=== PATIENT | male | born 1965 | race Caucasian/White ===

== ENCOUNTER 2018-03-22 03:49 | Emergency (ER) | payer MEDICAID ==
[2018-03-22] MEDS ORDERED: Sodium Chloride 0.9% 10 ML Syringe FLUSH PRN (03:55)
[2018-03-22] MEDS ORDERED: LORazepam 2 MG/ML SDV IVPUSH ONE (03:55)
[2018-03-22] MEDS ORDERED: Ondansetron 4 MG/2 ML SDV IVPUSH ONE (03:55)
[2018-03-22] MEDS ORDERED: Sodium Chloride 0.9% 2.5 ML Syringe FLUSH PRN (03:55)
[2018-03-22] MEDS ORDERED: Sodium Chloride 0.9% 1,000 ML IV ONE (03:55)
[2018-03-22] MEDS ORDERED: Pantoprazole 40 MG Vial IVPUSH ONE (03:55)
--- NOTE | 2018-03-22 03:58 | EDM.PDOC ---
ED HPI GENERAL MEDICAL PROBLEM - General Chief Complaint: General Stated Complaint: PANIC ATTACK Time Seen by Provider: 03/22/18 03:54 - History of Present Illness INITIAL COMMENTS - FREE TEXT/NARRATIVE: HISTORY AND PHYSICAL: History of present illness: The patient is a 52-year-old male with a history of diabetes for which she takes both insulin and pills and also has a history of panic attacks and alcoholism and presents via EMS for stating that he feels like he is dehydrated and he feels like he's having a panic attack. According to the patient he has not had his insulin for 2-3 weeks as his insurance will not cover it here and his daughter has to bring it from [place] and with his metformin he is supposed to be taking it twice a day and he only takes it once a day because he does not want to take the second dose in the evening because that is when he drinks his alcohol. He says he has been a chronic alcoholic ever since he was young and did complete a treatment program recently and was clean and sober for 18 months but relapsed about 6 months ago. He drinks on a daily basis and his last alcohol consumption was at 12 noon yesterday. He says he drinks a lot of water but he still feels very dehydrated and his tongue and throat feel very dry. He says he is making normal urine and he has not had any vomiting but has had some dry heaves. He has no abdominal pain that is new or different and no black or bloody stool. He says he has had padded tests in the past and this is similar but with the dehydration he wanted to be evaluated. The patient also has a history of intestinal surgery when he was a child with a midline lower abdominal scar that subsequently developed a ventral wall hernia which was repaired but never completely healed. He says he always has issues with the recurrence of the hernia as well as drainage from the old wound site but he has not seen anyone for this evaluation. Patient also has a history of a pacemaker and he is not really sure why he had the place. He has no cardiac disease and currently has no chest pain or shortness of breath. In the ED the patient mostly complains that his mouth and throat are very dry and is difficult for him to speak and swallow because it is so dry. He keeps asking for water or ice chips. He also says that he is anxious. Review of systems: As per history of present illness and below otherwise all systems reviewed and negative. Past medical history: As per history of present illness and as reviewed below otherwise noncontributory. Surgical history: As per history of present illness and as reviewed below otherwise noncontributory. Social history: No reported history of drug or alcohol abuse. Family history: As per history of present illness and as reviewed below otherwise noncontributory. Physical exam: General: Well-developed well-nourished overweight man who is nontoxic and able to speak clearly without breathlessness or slurring despite the very dry mucous membranes. Vital signs were noted by me HEENT: Atraumatic, normocephalic, pupils reactive, negative for conjunctival pallor or scleral icterus, mucous membranes very dry, throat clear, neck supple , nontender, trachea midline. The patient has facial flushing and telangiectasias of the cheeks consistent with his history of alcoholism. Lungs: Clear to auscultation, breath sounds equal bilaterally, chest nontender. No wheezing stridor or work of breathing Heart: S1S2, regular rate and rhythm no overt murmurs Abdomen: Soft, nondistended, nontender. Negative for masses or hepatosplenomegaly. Bowel sounds are slightly hypoactive. There is a well- healed infraumbilical midline scar and this is scar exhibits thickened scar tissue but no evidence of any hernial defects. In the supraumbilical area there is a chronic appearing scabby-like wound area that has no erythema or tenderness and there is a ventral wall hernia in this region which is soft and reducible. Overall the patient has no tenderness rebound or guarding with palpation of the abdomen as a whole. Pelvis: Stable nontender. Genitourinary: Deferred. Rectal: Deferred. Extremities: Atraumatic, negative for cords or calf pain. Neurovascular unremarkable. Full range of motion without defects or deficits Neuro: Awake, alert, oriented. Cranial nerves II through XII unremarkable. Cerebellum unremarkable. Motor and sensory unremarkable throughout. Exam nonfocal. The patient does exhibit slight tremulousness on my examination. Diagnostics: EKG CBC CMP amylase lipase alcohol level ammonia magnesium UA UDS ketones Therapeutics: IV O2 monitor IV fluids Protonix Ativan magnesium oxide Patient says he feels improved and does not feel anxious anymore. He is drinking water and taking ice chips without difficulty and he is not tremulous or tachycardic. He is telling me that his daughter has obtained his insulin and has placed the mail and he is due to receive it tomorrow Monday. I've offered him a prescription for him for his insulin and he says because of the cost he will not be able to afford it without his insurance and his insurance will not work here in [place]. He declines those prescriptions. I will give him local resources and have informed him of our closest rehabilitation program in [place]. He says that at this point he doesn't think that he is ready nor able to give up alcohol. He also admits to me that he does drink his whiskey with Mountain Dew every evening which he knows is bad for his diabetes He is aware of my concerns. I will give him a clinic follow-up information as well. Impression: Anxiety episode, clinical dehydration and hyperglycemia with history of diabetes and noncompliance education care plan, chronic alcoholism and alcohol use Definitive disposition and diagnosis as appropriate pending reevaluation and review of above. - Related Data Allergies Allergy/AdvReac Type Severity Reaction Status Date / Time No Known Allergies Allergy Verified 03/22/18 03:51 Home Meds: Home Meds FLUoxetine [PROzac] 03/22/18 [History] Insulin Detemir [Levemir] 30 unit SQ BID 03/22/18 [History] Lisinopril [Prinivil] 03/22/18 [History] Omeprazole 03/22/18 [History] metFORMIN [Glucophage XR] 03/22/18 [History] ED ROS GENERAL - Review of Systems Review Of Systems: ROS reveals no pertinent complaints other than HPI. ED EXAM, GENERAL - Physical Exam Exam: See Below (See dictation) Course - Vital Signs Last Recorded V/S: Last Vital Signs Temp 36.2 C 03/22/18 03:52 Pulse 80 03/22/18 05:04 Resp 20 03/22/18 05:04 BP 145/108 H 03/22/18 05:04 Pulse Ox 96 03/22/18 05:04 - Orders/Labs/Meds Orders: Active Orders 24 hr Category Date Time Status Blood Glucose Check, Bedside [RC] ONETIME Care 03/22/18 03:54 Active Cardiac Monitoring [RC] . DIRECTED Care 03/22/18 03:54 Active EKG Documentation Completion [RC] STAT Care 03/22/18 03:54 Active Oxygen Therapy, ED [RC] ASDIRECTED Care 03/22/18 03:54 Active Pulse Oximetry [RC] ASDIRECTED Care 03/22/18 03:54 Active DRUG SCREEN, URINE [URCHEM] Stat Lab 03/22/18 03:55 Ordered UA W/EDUAR RFLX IF INDICATED [URIN] Stat Lab 03/22/18 03:55 Ordered Magnesium Oxide Med 03/22/18 05:13 Once 400 mg PO ONETIME ONE Sodium Chloride 0.9% [Saline Flush] Med 03/22/18 03:55 Active 10 ml FLUSH ASDIRECTED PRN Sodium Chloride 0.9% [Saline Flush] Med 03/22/18 03:55 Active 2.5 ml FLUSH ASDIRECTED PRN Saline Lock Insert [OM.PC] Stat Oth 03/22/18 03:54 Ordered Medication Orders Sodium Chloride (Saline Flush) 10 ml FLUSH ASDIRECTED PRN PRN Reason: Keep Vein Open Sodium Chloride (Saline Flush) 2.5 ml FLUSH ASDIRECTED PRN PRN Reason: Keep Vein Open Labs: Laboratory Tests 03/22/18 03/22/18 03/22/18 Range/Units 04:05 04:05 04:05 WBC 6.15 (4.0-11.0) K/uL RBC 4.77 (4.50-5.90) M/uL Hgb 15.2 (13.0-17.0) g/dL Hct 43.1 (38.0-50.0) % MCV 90.4 (80.0-98.0) fL MCH 31.9 (27.0-32.0) pg MCHC 35.3 (31.0-37.0) g/dL RDW Std Deviation 42.7 (28.0-62.0) fl RDW Coeff of [place] 13 (11.0-15.0) % Plt Count 144 L (150-400) K/uL MPV 9.40 (7.40-12.00) fL Neut % (Auto) 48.2 (48.0-80.0) % Lymph % (Auto) 43.7 H (16.0-40.0) % Ellis % (Auto) 6.5 (0.0-15.0) % Eos % (Auto) 1.1 (0.0-7.0) % Baso % (Auto) 0.5 (0.0-1.5) % Neut # (Auto) 3.0 (1.4-5.7) K/uL Lymph # (Auto) 2.7 H (0.6-2.4) K/uL Ellis # (Auto) 0.4 (0.0-0.8) K/uL Eos # (Auto) 0.1 (0.0-0.7) K/uL Baso # (Auto) 0.0 (0.0-0.1) K/uL Nucleated RBC % 0.0 /100WBC Nucleated RBCs # 0 K/uL Sodium 138 (136-148) mmol/L Potassium 4.3 (3.5-5.1) mmol/L Chloride 100 (98-107) mmol/L Carbon Dioxide 24.0 (21.0-32.0) mmol/L BUN 9 (7.0-18.0) mg/dL Creatinine 1.1 (0.8-1.3) mg/dL Est Cr Clr Drug Dosing 84.62 mL/min Estimated GFR (MDRD) > 60.0 ml/min Glucose 347 H (74-106) mg/dL Calcium 9.0 (8.5-10.1) mg/dL Magnesium 1.3 L (1.8-2.4) mg/dL Total Bilirubin 0.3 (0.2-1.0) mg/dL AST 45 H (15-37) IU/L ALT 46 (14-63) IU/L Alkaline Phosphatase 67 (46-116) U/L Ammonia 30 (19-54) ug/dL Total Protein 7.5 (6.4-8.2) g/dL Albumin 3.9 (3.4-5.0) g/dL Globulin 3.6 (2.6-4.0) g/dL Albumin/Globulin Ratio 1.1 (0.9-1.6) Amylase 37 (25-115) U/L Lipase 175 (73-393) U/L Ethyl Alcohol 28 mg/dL Ketones (NEG) 03/22/18 Range/Units 04:05 WBC (4.0-11.0) K/uL RBC (4.50-5.90) M/uL Hgb (13.0-17.0) g/dL Hct (38.0-50.0) % MCV (80.0-98.0) fL MCH (27.0-32.0) pg MCHC (31.0-37.0) g/dL RDW Std Deviation (28.0-62.0) fl RDW Coeff of [place] (11.0-15.0) % Plt Count (150-400) K/uL MPV (7.40-12.00) fL Neut % (Auto) (48.0-80.0) % Lymph % (Auto) (16.0-40.0) % Ellis % (Auto) (0.0-15.0) % Eos % (Auto) (0.0-7.0) % Baso % (Auto) (0.0-1.5) % Neut # (Auto) (1.4-5.7) K/uL Lymph # (Auto) (0.6-2.4) K/uL Ellis # (Auto) (0.0-0.8) K/uL Eos # (Auto) (0.0-0.7) K/uL Baso # (Auto) (0.0-0.1) K/uL Nucleated RBC % /100WBC Nucleated RBCs # K/uL Sodium (136-148) mmol/L Potassium (3.5-5.1) mmol/L Chloride (98-107) mmol/L Carbon Dioxide (21.0-32.0) mmol/L BUN (7.0-18.0) mg/dL Creatinine (0.8-1.3) mg/dL Est Cr Clr Drug Dosing mL/min Estimated GFR (MDRD) ml/min Glucose (74-106) mg/dL Calcium (8.5-10.1) mg/dL Magnesium (1.8-2.4) mg/dL Total Bilirubin (0.2-1.0) mg/dL AST (15-37) IU/L ALT (14-63) IU/L Alkaline Phosphatase (46-116) U/L Ammonia (19-54) ug/dL Total Protein (6.4-8.2) g/dL Albumin (3.4-5.0) g/dL Globulin (2.6-4.0) g/dL Albumin/Globulin Ratio (0.9-1.6) Amylase (25-115) U/L Lipase (73-393) U/L Ethyl Alcohol mg/dL Ketones NEGATIVE (NEG) Meds: Medications Generic Name Dose Route Start Last Admin Trade Name Janay PRN Reason Stop Dose Admin Sodium Chloride 10 ml 03/22/18 03:55 Saline Flush FLUSH ASDIRECTED PRN Keep Vein Open Sodium Chloride 2.5 ml 03/22/18 03:55 Saline Flush FLUSH ASDIRECTED PRN Keep Vein Open Discontinued Medications Generic Name Dose Route Start Last Admin Trade Name Freashwin PRN Reason Stop Dose Admin Sodium Chloride 1,000 mls @ 999 mls/hr 03/22/18 03:55 03/22/18 04:07 Normal Saline IV 03/22/18 04:55 999 mls/hr STAT ONE Administration Sodium Chloride Confirm 03/22/18 04:07 03/22/18 04:25 Normal Saline Administered 03/22/18 04:08 20 mls/hr Dose Administration 20 mls @ as directed .ROUTE .STK-MED ONE Lorazepam 0.5 mg 03/22/18 03:55 03/22/18 04:09 Ativan IVPUSH 03/22/18 03:56 0.5 mg ONETIME ONE Administration Ondansetron HCl 4 mg 03/22/18 03:55 03/22/18 04:08 Zofran IVPUSH 03/22/18 03:56 4 mg ONETIME ONE Administration Pantoprazole Sodium 80 mg 03/22/18 03:55 03/22/18 04:10 Protonix Iv IVPUSH 03/22/18 03:56 80 mg .BOLUS ONE Administration Departure - Departure Time of Disposition: 05:16 Disposition: Home, Self-Care 01 Condition: Good Clinical Impression: Episode of anxiety, Alcoholism Hyperglycemia due to type 2 diabetes mellitus Qualifiers: Diabetes mellitus meterman insulin use: unspecified meterman insulin use status Qualified Code(s): E11.65 - Type 2 diabetes mellitus with hyperglycemia - Discharge Information Forms: ED Department Discharge Additional Instructions: The following information is given to patients seen in the emergency department who are being discharged to home. This information is to outline your options for follow-up care. We provide all patients seen in our emergency department with a follow-up referral. The need for follow-up, as well as the timing and circumstances, are variable depending upon the specifics of your emergency department visit. If you don't have a primary care physician on staff, we will provide you with a referral. We always advise you to contact your personal physician following an emergency department visit to inform them of the circumstance of the visit and for follow-up with them and/or the need for any referrals to a consulting specialist. The emergency department will also refer you to a specialist when appropriate. This referral assures that you have the opportunity for followup care with a specialist. All of these measure are taken in an effort to provide you with optimal care, which includes your followup. Under all circumstances we always encourage you to contact your private physician who remains a resource for coordinating your care. When calling for followup care, please make the office aware that this follow-up is from your recent emergency room visit. If for any reason you are refused follow-up, please contact the [facility] emergency department at and ask to speak to the emergency department charge nurse. [facility] Primary care- [place] [address] Please take your medications as they're prescribed once they arrive via mail. Push hydration and try to avoid alcohol and Mountain Dew consumption. Please call and schedule a follow-up appointment in our clinic using resources given to above and return to ER as needed as discussed. Please also take a look at the list of resources you have been given for outpatient services with respect to your alcohol use. - My Orders Last 24 Hours: My Active Orders 03/22/18 03:54 Blood Glucose Check, Bedside [RC] ONETIME Cardiac Monitoring [RC] . DIRECTED EKG Documentation Completion [RC] STAT Oxygen Therapy, ED [RC] ASDIRECTED Pulse Oximetry [RC] ASDIRECTED Saline Lock Insert [OM.PC] Stat 03/22/18 03:55 DRUG SCREEN, URINE [URCHEM] Stat UA W/EDUAR RFLX IF INDICATED [URIN] Stat Sodium Chloride 0.9% [Saline Flush] 10 ml FLUSH ASDIRECTED PRN Sodium Chloride 0.9% [Saline Flush] 2.5 ml FLUSH ASDIRECTED PRN 03/22/18 05:13 Magnesium Oxide 400 mg PO ONETIME ONE - Assessment/Plan Last 24 Hours: My Active Orders 03/22/18 03:54 Blood Glucose Check, Bedside [RC] ONETIME Cardiac Monitoring [RC] . DIRECTED EKG Documentation Completion [RC] STAT Oxygen Therapy, ED [RC] ASDIRECTED Pulse Oximetry [RC] ASDIRECTED Saline Lock Insert [OM.PC] Stat 03/22/18 03:55 DRUG SCREEN, URINE [URCHEM] Stat UA W/EDUAR RFLX IF INDICATED [URIN] Stat Sodium Chloride 0.9% [Saline Flush] 10 ml FLUSH ASDIRECTED PRN Sodium Chloride 0.9% [Saline Flush] 2.5 ml FLUSH ASDIRECTED PRN 03/22/18 05:13 Magnesium Oxide 400 mg PO ONETIME ONE
[2018-03-22] MEDS ORDERED: Sodium Chloride 0.9% 20 ML ONE (04:07)
[2018-03-22 04:32] LABS: CHLORIDE,CL 100 mmol/L (98-107); SODIUM,NA 138 mmol/L (136-148)
[2018-03-22] MEDS ORDERED: Magnesium Oxide 400 MG Tab PO ONE (05:13)
== END 2018-03-22 05:29 | disposition home or self-care (01) ==
LOC: MW.ED 03:49
DX: F41.9 Anxiety disorder, unspecified (principal); E86.0 Dehydration; E11.65 Type 2 diabetes mellitus with hyperglycemia; F10.20 Alcohol dependence, uncomplicated; Y90.1 Blood alcohol level of 20-39 mg/100 ml; Z91.19 Patient's noncompliance with other medical treatment and regimen; Z79.4 Long term (current) use of insulin
CPT/HCPCS: 36415; 80053; 82009; 82140; 82150; 83690; 83735; 85025; 93005; 96361; 96374; 96375; 99284; C9113; G0480; J2060; J2405; J7040